=== PATIENT | male | born 1965 | race Caucasian/White ===

== ENCOUNTER → 2016-07-16 | Outpatient (CLI) | payer OTHER ==
--- NOTE | ~2016-07-16 | CR222 ---
[facility] A Service of [facility] RADIOLOGY TEXT RESULTS PATIENT: RUBY ARROYO LOCATION: [facility] : 65 UNIT #: [id number] AGE: [address]: SEBASTIEN KHALIL SEX: M ORDER DR: [id number] [address] [address] [id number] O MR#: [id number] Acc #: [id number] NAME: RUBY ARROYO. : 1965 SEX: M STUDY DATE/TIME: 07/16/2016 16:22 UNIT: [facility] ROOM: STUDY DESCRIPTION: CR Scoliosis Standing Attending Physician: Sebastien Khalil Aprn Referring Physician: Sebastien Khalil Aprn Ordering Physician: Sebastien Khalil Aprn Primary Care Physician: Sebastien Khalil Aprn MEDICAL IMAGING REPORT This report is preliminary unless electronic signature is present. EXAM Scoliosis series HISTORY Back pain radiating down the legs with 1 leg longer than the other. Patient walks with a limp. Evaluate for scoliosis. Symptoms have been present for many years. TECHNIQUE AP and lateral views of the thoracolumbar spine were obtained. Four views total. FINDINGS There is a lower thoracic levoscoliosis with a Robles angle of 17 degrees. There is a corresponding dextroscoliosis of the lumbar spine. Degenerative changes are seen in the mid thoracic discs predominantly and more toward the right than toward the left. This is most prominent at T8-9. No fractures are seen. No destructive bone lesions are noted. In the lumbar spine, the most severe degenerative changes are at the L4-5 and L5-S1 discs. IMPRESSION S-scoliosis of the thoracolumbar spine measuring 17 degrees convex toward the left in the mid-thoracic region. Degenerative changes mid thoracic and lower lumbar discs. Since a previous lumbar spine series in 2006, the scoliosis has increased. Degenerative changes in the lumbar discs at L4-5 and L5-S1 have worsened. Dictated by... Dinesh Harding M.D. [facility] A Service of [facility] RADIOLOGY TEXT RESULTS PATIENT: RUBY ARROYO LOCATION: [facility] : 65 UNIT #: [id number] AGE: [address]: SEBASTIEN KHALIL SEX: M ORDER DR: THIS IS AN ELECTRONICALLY VERIFIED REPORT Dinesh Harding M.D. at 07/17/2016 4:32 PM JARVIS/jarrett TD: 07/17/2016 12:30 JOB #: [id number] MEDICAL IMAGING REPORT Page 1 of 1
== END | disposition home or self-care (01) ==
LOC: SRAD 16:08
DX: M54.5 Low back pain (principal); M41.9 Scoliosis, unspecified; M47.896 Other spondylosis, lumbar region; M47.897 Other spondylosis, lumbosacral region
CPT/HCPCS: 72081